=== PATIENT | male | born 1965 | race Caucasian/White ===

== ENCOUNTER 2016-08-01 22:08 | Emergency (ER) | payer MEDICARE, MEDICAID ==
[~2016-08-01] VITALS: Ht 175.3 cm; Wt 70.5 kg
[2016-08-01 22:13] VITALS: BP 104/67; PULSE 77; RESP 16; O2SAT 100
--- NOTE | 2016-08-01 23:16 | ED.REPORT ---
HPI-Hip/Pelvis Prob/Inj Date of Service Aug 01, 2016 ED Provider: Dr. Garcia Pt is a 50 year old male presenting to the ER complaining of worsening right hip pain radiating down his leg onset earlier today. He reports that he was ambulatory when he came into the ER but the pain has been progressively worsening. He denies injury, hx of disk disease, incontinence, dysuria or foot pain. Nursing Notes Stated Complaint: RIGHT HIP PAIN Chief Complaint: Extremity Trauma Nursing Notes Reviewed: Yes Allergies: Coded Allergies: morphine (Verified Allergy, Severe, 08/01/16) Scheduled Prednisone (PredniSONE) 20 Mg Tablet 20 MG PO TID General Time Seen by Provider: 23:20 Chief Complaint Hip pain right Hx Obtained From: Patient Arrived By: Wheelchair Onset Occurred: 9 - 12 hours ago Symptom Duration: Since onset Progression Since Onset: Gradually worsening Quality: Painful Radiation: Radiation present (Down right leg) Severity: Current: Severe Severity: Maximum: Severe Recent Healthcare: No recent doctor visit, No recent hospitalization Similar Sx Previous: No Past Medical History Past Medical History Stroke 2007 Past Surgical History Reports: Appendectomy Smoking History Former Smoker Ambulatory Status Independent Review of Systems Musculoskeletal: Reports: Extremity pain (Right leg), Joint pain (Right hip) Complete sys rev & neg: except as marked. Male: Denies Dysuria, Denies Incontinence Physical Exam Initial Vital Signs Vital Signs (First) Date Time Temp Pulse Resp B/P Pulse Ox O2 Delivery O2 Flow Rate FiO2 08/01/16 22:13 36.4 77 16 104/67 100 Room Air Initial VS: Reviewed, Vital signs normal General/Constitutional: Well-developed, Well-nourished Head / Eyes: Atraumatic, Normocephalic, PERRL ENT: Mucous membranes moist, Conjunctiva normal, No scleral icterus Respiratory: No respiratory distress Abdomen / GI: No distention Upper Extremities: Vascular intact, Neuro intact, No swelling, No tenderness Skin: Warm, Dry, No cyanosis Neurologic: Alert, Oriented, Nonfocal Psychiatric: Mood/affect normal, Behavior normal, Normal thought content Lower Extremity / Pelvis / MS: Atraumatic Right Hip: Positive: Tenderness present... (Moderate, Right sciatic joint area) Right sciatic distribution pain. Positive straight leg raising. Interpretation & Diagnostics Interpretation & Diagnostics: XRAY LUMBAR SPINE: Normal. Wet Read ED physician. Lab Results Interpretation Test 08/01/16 23:53 Hold Purple Top Tube Received (Received) Hold Blue Top Tube Received (Received) Hold Byram Top Tube Received (Received) X-Ray Interpretation Xray Interpretation: No acute bony process seen. Slight spurring L4-L5. X-Ray Ordered: Pelvis, Hip right Interpretation / Wet Read by: Wet read ED physician Re-Eval/Medical Decision Med Decision/Clinical Course Right sciatica, likely secondary to disc herniation. Pain control and oral steroids. Follow-up with his primary doctor or orthopedics as needed for persistent symptoms. He will likely need an MRI if symptoms do not resolve. Re-Evaluation/Progress : Time of Eval: 01:08 Patient Status: Condition improved Re-Evaluation/Progress Note: Discussed plan for discharge. Pt understands and agrees. Counseled Regarding: Diagnosis, Lab results, Need for follow-up, When/why to return to ED Discharge & Departure Disposition: Home Discharge Condition All VS Reviewed: Yes Condition: Improved Patient Instructions: Sciatica (ED) Additional Instructions: Your pain seems to be due to sciatica. You likely have disc herniation which is pinching a nerve in your right lower lumbar area. Prednisone 20 mg 3 times a day will help to decrease the swelling and irritation, #15 prescription written. Oxycodone 5 mg/acetaminophen 325 mg, one or 2 pills every 4-6 hours as needed for severe pain, #10 dispensed. Referrals: Mallroy Amezcua MD (PCP) [facility] Attestation Portions of this note were transcribed by Tomasa Taylor. I, Dr. Garcia personally performed the history, physical exam and medical decision-making; I reviewed and confirmed the accuracy of the information in the transcribed note. Signed by: Andrey Cortes, 08/01/2016 and 0129. copies to: Mallory Amezcua MD, Joao Villa MD Aug 01, 2016 23:16 TOMASA TAYLOR Aug 01, 2016 23:25
[2016-08-01] MEDS ORDERED: MethylprednisoLONE Sodium Succinate 62.5 mg/mL 2 mL Inj IVPUSH ONE (23:25)
[2016-08-01 23:59] VITALS: BP 104/67; PULSE 77; RESP 16; O2SAT 100
[2016-08-02] MEDS ORDERED: _oxyCODONE/APAP 5-325 mg Tablet PO PRN (01:20)
[2016-08-02] MEDS ORDERED: PRE20 PO (01:27)
[2016-08-02 01:36] VITALS: BP 98/57; PULSE 64; RESP 18; O2SAT 97
--- NOTE | 2016-08-02 08:05 | DRSVH ---
PROCEDURE: X-RAY LUMBAR SPINE, 2 OR 3 VIEW INDICATIONS: right hip pain TECHNIQUE: 3 views of the lumbar spine were acquired. COMPARISON: None. FINDINGS: Bones: No fracture or focal osseous destruction. Lower lumbar facet arthropathy from L4-S1. Diffuse e ndplate sclerosis and spurring. No definite disc space narrowing. Soft tissues: Overlying bowel gas pattern is normal. No suspicious soft tissue calcifications. IMPRESSION: Lower lumbar facet arthropathy. No fracture Dictated by: Chao Ardon M.D. on 08/02/2016 at 8:02 Approved by: Chao Ardon M.D. on 08/02/2016 at 8:03
--- NOTE | 2016-08-02 08:07 | DRSVH ---
PROCEDURE: X-RAY PELVIS W/LAT HIP (RT) ([id number]) INDICATIONS: right hip pain TECHNIQUE: AP pelvis with lateral view(s) of the right hip(s). COMPARISON: None. FINDINGS: Bones: No fractures or dislocations. Pelvic ring appears intact. No suspicious bony lesions. Soft tissues: The visualized bowel gas pattern is normal. No suspicious soft tissue calcifications. IMPRESSION: No fracture. Mild bilateral facet joint degeneration Dictated by: Chao Ardon M.D. on 08/02/2016 at 8:05 Approved by: Chao Ardon M.D. on 08/02/2016 at 8:06
== END 2016-08-02 01:46 | disposition home or self-care (01) ==
LOC: SED 22:08
DX: M54.31 Sciatica, right side (principal); Z86.73 Personal history of transient ischemic attack (TIA), and cerebral infarction without residual deficits; Z90.49 Acquired absence of other specified parts of digestive tract; Z87.891 Personal history of nicotine dependence; Z88.5 Allergy status to narcotic agent
CPT/HCPCS: 72100; 73501; 96374; 96375; 99284; J2930